=== PATIENT | male | born 1965 | race Caucasian/White ===

== ENCOUNTER 2024-09-25 05:51 | Day surgery (SDC) | payer OTHER ==
[2024-09-18 08:37] VITALS: BP 150/92
[~2024-09-25] VITALS: Ht 177.8 cm; Wt 78.0 kg
[~2024-09-25 05:51] MED LIST: ALLOPURINOL300 MG PO; CALCIUM 600 MG1 EACH PO; CLARITIN10 M2 PO; CYCLOBENZAPRINE5 MG PO; ESCITALOPRAM OXA5 MG PO; IBUPROFEN200 MG PO; LACTATED RINGER'S 1,000 ML IV SCH; ROSUVASTATIN CA10 MG PO; VALSARTAN80 MG PO; VITAMIN A8000 UNIT PO; VITAMIN D2000 UNI1 PO; VITAMIN E100 UNI1 PO
[2024-09-25 06:02] VITALS: BP 132/92
[2024-09-25] MEDS ORDERED: IBLOOD GLUCOSE TEST STRIP 1 EA TEST VI PRN (07:00)
[2024-09-25] MEDS ORDERED: LIDOCAINE HCL 1% 5 ML SDV INJ ONE (07:00)
--- NOTE | 2024-09-25 07:29 | NUR ---
VISITED DURING SPIRITUAL CARE ROUNDS. PT SUPPORTED BY SPOUSE IN ROOM. BOTH IN OVERALL GOOD SPIRITS, NO IMMEDIATE NEEDS. BLOGS MANAGER PROVIDED SUPPORTIVE PRESENCE, HOSPITALITY, PRAYER. PT EXPRESSED HUMOR, GRATITUDE, HOPE.
--- NOTE | 2024-09-25 08:03 | NUR ---
09/25/24 0803 Kendal Mcgee 0800-PATIENT ARRIVED TO PACU ON RA RR EVEN. PATIENT AWAKE LAYING LEFT LATERAL. ABDOMEN SOFT. ORIENTED TO PACU ENCOURAGED TO PASS GAS. IVF INFUSING. SR HR 80'S.
[2024-09-25 08:28] VITALS: BP 140/86
--- NOTE | 2024-09-26 08:32 | OR ---
[facility] [address] [place], [place] [address] Signed DATE OF OPERATION: 09/25/2024 SURGEON: Rupal Duran DO PREOPERATIVE DIAGNOSIS: Colon cancer screening. POSTOPERATIVE DIAGNOSIS: 1. Colon cancer screening with a sessile polyp at 70 cm. 2. Diverticulosis. PROCEDURE PERFORMED: Colonoscopy with biopsy of polyp at 70 cm. ANESTHESIA: IV sedation. EBL: Minimal. DRAINS: None. COMPLICATIONS: None. DESCRIPTION OF PROCEDURE: The patient was brought to the GI lab, placed in supine position. After induction of IV sedation, the patient placed in left lateral position and padded to the satisfaction of anesthesia. Digital rectal exam was performed and no evidence of overt prostate abnormality or rectal abnormality was noted. The colonoscope was then introduced into the rectum and directed to the rectosigmoid, sigmoid colon, descending colon, transverse colon, and into the ascending colon and cecum. The colon was then fully insufflated and the scope was withdrawn and the mucosal surface was visualized throughout the cecum and ascending colon had no intrinsic or extrinsic masses appreciated. Scope was brought back into the past hepatic flexure and transverse colon. No intrinsic or extrinsic masses were noted. The scope was brought back into the splenic flexure. No intrinsic or extrinsic masses were noted. The scope was then brought back into the descending colon, approximately at 70 cm, a flat sessile polyp was noted and multiple cold biopsies were taken of this and passed off the field for pathologic review. The scope was then Electronically Signed By: RUPAL DURAN DO 09/26/24 0832 PATIENT NAME: GOOD,ANA LUISA BENAR OPERATIVE REPORT DATE OF : 67 REPORT #: [id number] PHYSICIAN: RUPAL DURAN DO PCP: RUPAL BUI MD REPORT IS CONFIDENTIAL AND NOT TO BE RELEASED WITHOUT AUTHORIZATION [facility] [address] [facility] [place] [place] [address] Signed brought back into the sigmoid colon. Multiple areas of diverticulosis are present. No evidence of diverticulitis was noted. The rectosigmoid and ascending colon were essentially otherwise unremarkable. The colonoscope was withdrawn. The patient tolerated the procedure well, taken to recovery room in satisfactory condition. DO KAYLA Riggs/FERNANDAL /[id number] Copies: ~ Electronically Signed By: RUPAL DURAN DO 09/26/24 0832 PATIENT NAME: ANA LUISA MODI OPERATIVE REPORT DATE OF : 67 REPORT #: [id number] PHYSICIAN: RUPAL DURAN DO PCP: RUPAL BUI MD REPORT IS CONFIDENTIAL AND NOT TO BE RELEASED WITHOUT AUTHORIZATION
--- NOTE | 2024-09-27 14:01 | PATH ---
[facility] [address] [place], [place] [address] Signed SPECIMEN(S): A COLON BIOPSY @70 CM SPECIMEN SOURCE: A. COLON BIOPSY @70 CM CLINICAL HISTORY: Screening. Post-diverticulosis, polyp at 70 A) biopsy FINAL PATHOLOGIC DIAGNOSIS: Colon at 70 cm, biopsies - Mildly hyperplastic colonic mucosa, negative for active colitis, granulomas or dysplasia. AMB MICROSCOPIC EXAMINATION: Histologic sections of all submitted blocks are examined by light microscopy. These findings, together with the gross examination, support the pathologic diagnosis. GROSS DESCRIPTION: The specimen, labeled and designated "Good, N, colon biopsy at 70 cm," is received in formalin and consists of two phillips soft tissue fragments, ranging from 0.3-0.4 cm. Entirely submitted in (A1). AB (under the direct supervision of a pathologist) The Gross Description was prepared using a voice recognition system. The report was reviewed for accuracy; however, sound-alike word errors, addition and/or deletions may occur. If there is any question about this report, please contact Client Services. ADDITIONAL NOTES: Immunohistochemical and/or in situ hybridization studies if performed in this case included appropriate positive controls that reacted as expected. This test was developed and its performance characteristics determined by [facility]. It has not been cleared or approved by the U.S. Food and Drug Administration. The FDA has determined that such clearance or approval is not necessary. This test is used for clinical purposes. It should not be regarded as investigational or for research. [facility] is certified under the Clinical Laboratory Improvement Amendments of 1988 (CLIA) as qualified to perform high complexity clinical PATIENT NAME: ANA LUISA MODI PATHOLOGY DATE OF : 67 REPORT #: [id number] PHYSICIAN: [facility]DY PATHOLOGY PCP: RUPAL BUI MD REPORT IS CONFIDENTIAL AND NOT TO BE RELEASED WITHOUT AUTHORIZATION [facility] [address] [place] [address] [place], [place] [address] Signed laboratory testing. PERFORMING LABORATORY: Technical component was performed by [facility], [address] [place] [address] (CLIA# [id number]). Professional interpretation was performed by [facility] [address] [place] [id number] Diagnostician: Melita Willoughby MD Pathologist Electronically Signed 09/27/2024 Copies: ~ PATIENT NAME: ANA LUISA MODI PATHOLOGY DATE OF : 67 REPORT #: [id number] PHYSICIAN: [facility] PATHOLOG[facility] PCP: RUPAL BUI MD REPORT IS CONFIDENTIAL AND NOT TO BE RELEASED WITHOUT AUTHORIZATION
== END 2024-09-25 08:35 | disposition home or self-care (01) ==
LOC: OPS 05:51 → DS 05:51 → OPS 07:30 → DS 07:30 → OPS 08:35
PROVIDERS: ATTEND Surgery
PROC: 0DBM8ZX Excision of Descending Colon, Via Natural or Artificial Opening Endoscopic, Diagnostic (ICD-10-PCS; principal; 2024-09-25 07:30)
DX: Z12.11 Encounter for screening for malignant neoplasm of colon (principal); K63.5 Polyp of colon; K57.30 Diverticulosis of large intestine without perforation or abscess without bleeding; Z86.0100 Personal history of colon polyps, unspecified; I10 Essential (primary) hypertension; Z79.899 Other long term (current) drug therapy
CPT/HCPCS: 00811; J2704; J7121